=== PATIENT | female | born 1955 ===

== ENCOUNTER → 2019-12-31 14:07 | Outpatient (BNVA) | payer MEDICARE, MEDICAID, SELFPAY | PROVIDERS: Referring Provider Family Medicine; Visit Provider Nurse Practitioner Adult Health | DX: G56.21 Lesion of ulnar nerve, right upper limb (principal); I10 Essential (primary) hypertension; H44.9 Unspecified disorder of globe; I25.2 Old myocardial infarction; J44.9 Chronic obstructive pulmonary disease, unspecified | CPT/HCPCS: 95886; 95908; 99203 ==